=== PATIENT | female | born 1990 | race Hispanic/Latino ===

== ENCOUNTER 2017-01-17 14:44 | Emergency (ER) | payer SELFPAY ==
[~2017-01-17] VITALS: Ht 170.2 cm; Wt 79.5 kg
[~2017-01-17 14:44] MED LIST: AMOXICILLIN500 MG OR; AMOXICILLIN500 MG PO; BACTRIM DS1 TAB PO; CIPRO500 MG OR; CORTISPORIN OTI10 M2 AD; FIORICET PO; KETOROLAC10 MG OR; LORTAB 1010 MG PO; MACRODANTIN100 MG OR; NAPROSYN500 MG PO; NO HOME MEDS; PERCOCET 5/325M1 TAB PO; PROMETHAZINE25 M1 RE; TESSALON PER100 MG PO; TORADOL PO; ZITHROMAX250 MG PO; ZOFRAN4 MG/TAB PO
[2017-01-17] MEDS ORDERED: CIPROFLOXACN500 MG PO (15:33)
[2017-01-17] MEDS ORDERED: ZOFRAN ODT4 MG PO (15:33)
[2017-01-17 15:49] VITALS: BP 139/78
== END 2017-01-17 15:49 | disposition home or self-care (01) | DRG 392 ==
LOC: ED 14:44
DX: K52.9 Noninfective gastroenteritis and colitis, unspecified (principal)

== ENCOUNTER 2017-05-14 17:53 | Emergency (ER) | payer MEDICAID ==
[~2017-05-14] VITALS: Ht 170.2 cm; Wt 95.0 kg
[~2017-05-14 17:53] MED LIST changes: +CIPROFLOXACN500 MG PO; +ZOFRAN ODT4 MG PO
[2017-05-14 18:31] VITALS: BP 158/95
== END 2017-05-14 18:37 | disposition home or self-care (01) | DRG 781 ==
LOC: ED 17:53
DX: O26.891 Other specified pregnancy related conditions, first trimester (principal); R76.11 Nonspecific reaction to tuberculin skin test without active tuberculosis; Z3A.01 Less than 8 weeks gestation of pregnancy

== ENCOUNTER 2017-05-22 13:33 | Emergency (ER) | payer MEDICAID ==
[~2017-05-22] VITALS: Ht 170.2 cm; Wt 90.0 kg
[2017-05-22 13:33] VITALS: BP 147/96
[2017-05-22 14:39] LABS: HEMATOCRIT 42.1 % (37.0-47.0); IMMATURE GRANULOCYTES 0.5 % (0.0-1.0); MEAN CELL VOLUME 85.9 fL CALC (80.0-100.0); MEAN CORPUSCULAR HGB 30.6 pG CALC (26.0-32.0); MEAN CORPUSCULAR HGB CONC 35.6 g/L CALC (32.0-36.0); NEUT# 9.75 thou/uL (2.00-7.15); RED BLOOD COUNT 4.9 mill/uL (4.20-5.60); RED CELL DISTRI WIDTH 12.3 % (11.5-15.5)
[2017-05-22 14:56] LABS: ALBUMIN 4.6 g/dL (3.2-5.0); ALKALINE PHOSPHATASE 69 u/l (38-126); AMYLASE 46 u/l (30-110); ANION GAP 18 (6-22 (CALC)); BILIRUBIN, TOTAL 3.2 mg/dL (0.0-1.4); BUN 8 mg/dL (7-17); BUN/CREATININE RATIO 13 (12-20 (CALC)); CALCIUM 9.8 mg/dL (8.4-10.2); CARBON DIOXIDE 22 mmol/l (22-30); CHLORIDE 105 mmol/l (95-108); CREATININE 0.6 mg/dL (0.5-1.0); GFR > 60 ML/MIN (>=60 (CALC)); GFR FOR AFR.AMER. > 60 ML/MIN (>=60 (CALC)); GLUCOSE 111 mg/dL (65-105); LIPASE 37 u/l (23-300); POTASSIUM 4.2 mmol/l (3.5-5.1); SGOT/AST 32 u/l (14-36); SGPT/ALT 42 u/l (9-52); SODIUM 141 mmol/l (137-146); TOTAL PROTEIN 7.8 g/dL (6.3-8.2)
[2017-05-22] MEDS ORDERED: ZOFRAN ODT4 MG PO (15:33)
== END 2017-05-22 16:00 | disposition home or self-care (01) | DRG 781 ==
LOC: ED 13:33
PROVIDERS: Emergency Medicine
DX: O21.0 Mild hyperemesis gravidarum (principal); Z3A.01 Less than 8 weeks gestation of pregnancy

== ENCOUNTER 2017-06-19 00:14 | Emergency (ER) | payer OTHER ==
[~2017-06-19] VITALS: Ht 170.2 cm; Wt 95.2 kg
[2017-06-19] MEDS ORDERED: AMOXICILLIN500 MG PO (00:29)
[2017-06-19 00:40] VITALS: BP 135/75
== END 2017-06-19 00:40 | disposition home or self-care (01) | DRG 159 ==
LOC: ED 00:14
DX: K08.89 Other specified disorders of teeth and supporting structures (principal); K03.81 Cracked tooth; Z33.1 Pregnant state, incidental

== ENCOUNTER 2017-11-28 09:08 | Emergency (ER) | payer OTHER ==
[~2017-11-28] VITALS: Ht 170.2 cm; Wt 98.6 kg
[2017-11-28] MEDS ORDERED: PRENATA3 PO (09:24)
[2017-11-28] MEDS ORDERED: CLINDAMYCIN300 M1 PO (11:05)
[2017-11-28] MEDS ORDERED: HYDROCO/APAP1 TA9 PO (11:05)
[2017-11-28 12:10] VITALS: BP 136/79
== END 2017-11-28 12:10 | disposition home or self-care (01) | DRG 603 ==
LOC: ED 09:08
PROC: 0H98XZZ Drainage of Buttock Skin, External Approach (ICD-10-PCS; principal; 2017-11-28)
DX: L02.31 Cutaneous abscess of buttock (principal); B95.4 Other streptococcus as the cause of diseases classified elsewhere; Z33.1 Pregnant state, incidental

== ENCOUNTER 2018-10-27 04:48 | Emergency (ER) | payer OTHER ==
[~2018-10-27] VITALS: Ht 170.2 cm; Wt 95.0 kg
[~2018-10-27 04:48] MED LIST changes: +CLINDAMYCIN300 M1 PO; +HYDROCO/APAP1 TA9 PO; +PRENATA3 PO
[2018-10-27 05:26] LABS: HEMATOCRIT 41.1 % (37.0-47.0); IMMATURE GRANULOCYTES 0.6 % (0.0-5.0); MEAN CELL VOLUME 87.1 fL CALC (80.0-100.0); MEAN CORPUSCULAR HGB 29.7 pG CALC (26.0-32.0); MEAN CORPUSCULAR HGB CONC 34.1 g/L CALC (32.0-36.0); RED BLOOD COUNT 4.72 mill/uL (4.20-5.60); RED CELL DISTRI WIDTH 13.2 % (11.5-15.5); URINE BILIRUBIN - DIPSTICK NEGATIVE (NEGATIVE); URINE BLOOD DIPSTICK SMALL (NEGATIVE); URINE COLOR YELLOW; URINE GLUCOSE - DIPSTICK NEGATIVE (NEGATIVE); URINE KETONE NEGATIVE (NEGATIVE); URINE NITRITE - DIPSTICK NEGATIVE (Negative); URINE PROTEIN - DIPSTICK NEGATIVE (NEG-TRACE); URINE SPECIFIC GRAVITY 1.015; URINE UROBILINOGEN - DIPSTICK 0.2 E.U./dL (0.2)
[2018-10-27 05:31] LABS: URINE LEUK ESTERASE SMALL (NEGATIVE)
[2018-10-27 05:34] LABS: URINE BACTERIA FEW hpf; URINE SQUAMOUS EPITHELIAL CELL FEW EPI/hpf (0-FEW); URINE WBC 20-50 WBC/hpf (0-5)
[2018-10-27 05:40] LABS: ALBUMIN 4.5 g/dL (3.2-5.0); ALKALINE PHOSPHATASE 85 u/l (38-126); AMYLASE 32 u/l (30-110); ANION GAP 15 (6-22 (CALC)); BUN 12 mg/dL (7-17); BUN/CREATININE RATIO 18 (12-20 (CALC)); CARBON DIOXIDE 25 mmol/l (22-30); CHLORIDE 104 mmol/l (95-108); CREATININE 0.7 mg/dL (0.5-1.0); GFR > 60 ML/MIN (>=60 (CALC)); GFR FOR AFR.AMER. > 60 ML/MIN (>=60 (CALC)); LIPASE 61 u/l (23-300); POTASSIUM 4.6 mmol/l (3.5-5.1); SGOT/AST 17 u/l (14-36); SODIUM 140 mmol/l (137-146); TOTAL PROTEIN 7.4 g/dL (6.3-8.2)
[2018-10-27] MEDS ORDERED: CIPROFLOXACN500 MG PO (06:42)
[2018-10-27] MEDS ORDERED: NAPROSYN500 MG PO (06:42)
[2018-10-27 07:30] VITALS: BP 133/91
== END 2018-10-27 07:30 | disposition home or self-care (01) ==
LOC: ED 04:48
PROVIDERS: Emergency Medicine
DX: N39.0 Urinary tract infection, site not specified (principal); B96.20 Unspecified Escherichia coli [E. coli] as the cause of diseases classified elsewhere; R10.32 Left lower quadrant pain; K76.0 Fatty (change of) liver, not elsewhere classified; R30.0 Dysuria; R11.0 Nausea; R35.0 Frequency of micturition

== ENCOUNTER 2018-11-03 09:01 | Emergency (ER) | payer OTHER ==
[~2018-11-03] VITALS: Ht 170.2 cm; Wt 100.0 kg
[2018-11-03 09:35] LABS: HEMOGLOBIN 13.4 g/dl (12.0-16.0); IMMATURE GRANULOCYTES 0.6 % (0.0-5.0); MEAN CELL VOLUME 86.6 fL CALC (80.0-100.0); MEAN CORPUSCULAR HGB CONC 33.5 g/L CALC (32.0-36.0); NEUT# 5.24 thou/uL (2.00-7.15); RED BLOOD COUNT 4.62 mill/uL (4.20-5.60); RED CELL DISTRI WIDTH 12.8 % (11.5-15.5)
[2018-11-03 10:15] LABS: ALBUMIN 3.8 g/dL (3.2-5.0); ALKALINE PHOSPHATASE 66 u/l (38-126); ANION GAP 14 (6-22 (CALC)); BILIRUBIN, TOTAL 0.6 mg/dL (0.0-1.4); BUN 6 mg/dL (7-17); BUN/CREATININE RATIO 12 (12-20 (CALC)); CARBON DIOXIDE 24 mmol/l (22-30); CHLORIDE 107 mmol/l (95-108); CREATININE 0.5 mg/dL (0.5-1.0); ETHYL ALCOHOL 0 mg/dl (0-30); GFR > 60 ML/MIN (>=60 (CALC)); GFR FOR AFR.AMER. > 60 ML/MIN (>=60 (CALC)); LIPASE 42 u/l (23-300); POTASSIUM 4.4 mmol/l (3.5-5.1); SGOT/AST 20 u/l (14-36); SODIUM 140 mmol/l (137-146); TOTAL PROTEIN 6.9 g/dL (6.3-8.2)
[2018-11-03 11:18] VITALS: BP 143/96
== END 2018-11-03 11:15 | disposition home or self-care (01) | DRG 563 ==
LOC: ED 09:01
PROVIDERS: Family Medicine
DX: S39.012A Strain of muscle, fascia and tendon of lower back, initial encounter (principal); M54.2 Cervicalgia; V43.53XA Car driver injured in collision with pick-up truck in traffic accident, initial encounter
CPT/HCPCS: Q9967

== ENCOUNTER 2018-12-03 07:50 | Emergency (ER) | payer OTHER ==
[~2018-12-03] VITALS: Ht 170.2 cm; Wt 100.0 kg
[2018-12-03 08:23] LABS: URINE BILIRUBIN - DIPSTICK NEGATIVE (NEGATIVE); URINE BLOOD DIPSTICK MODERATE (NEGATIVE); URINE COLOR YELLOW; URINE GLUCOSE - DIPSTICK NEGATIVE (NEGATIVE); URINE KETONE NEGATIVE (NEGATIVE); URINE LEUK ESTERASE NEGATIVE (NEGATIVE); URINE NITRITE - DIPSTICK NEGATIVE (Negative); URINE PH 6.5 (4.5-8.0); URINE PROTEIN - DIPSTICK NEGATIVE (NEG-TRACE); URINE UROBILINOGEN - DIPSTICK 0.2 E.U./dL (0.2)
[2018-12-03 08:30] LABS: HEMOGLOBIN 14.2 g/dl (12.0-16.0); IMMATURE GRANULOCYTES 0.4 % (0.0-5.0); MEAN CELL VOLUME 85.7 fL CALC (80.0-100.0); MEAN CORPUSCULAR HGB CONC 33.8 g/L CALC (32.0-36.0); NEUT# 7.01 thou/uL (2.00-7.15); RED BLOOD COUNT 4.9 mill/uL (4.20-5.60); RED CELL DISTRI WIDTH 12.8 % (11.5-15.5)
[2018-12-03 08:33] LABS: URINE BACTERIA FEW hpf; URINE RBC 0-2 RBC/hpf (0-5); URINE SQUAMOUS EPITHELIAL CELL FEW EPI/hpf (0-FEW)
[2018-12-03 08:37] LABS: ALBUMIN 4.7 g/dL (3.2-5.0); ALKALINE PHOSPHATASE 88 u/l (38-126); ANION GAP 16 (6-22 (CALC)); BILIRUBIN, TOTAL 0.8 mg/dL (0.0-1.4); BUN 9 mg/dL (7-17); BUN/CREATININE RATIO 16 (12-20 (CALC)); CARBON DIOXIDE 26 mmol/l (22-30); CHLORIDE 103 mmol/l (95-108); CREATININE 0.6 mg/dL (0.5-1.0); GFR > 60 ML/MIN (>=60 (CALC)); GFR FOR AFR.AMER. > 60 ML/MIN (>=60 (CALC)); LIPASE 63 u/l (23-300); POTASSIUM 3.9 mmol/l (3.5-5.1); SGOT/AST 20 u/l (14-36); SODIUM 141 mmol/l (137-146); TOTAL PROTEIN 7.6 g/dL (6.3-8.2)
[2018-12-03] MEDS ORDERED: ONDANSETRON4 MG PO (10:59)
[2018-12-03 11:07] VITALS: BP 124/70
== END 2018-12-03 11:05 | disposition home or self-care (01) ==
LOC: ED 07:50
PROVIDERS: Family Medicine
DX: K52.9 Noninfective gastroenteritis and colitis, unspecified (principal); R11.2 Nausea with vomiting, unspecified; R19.7 Diarrhea, unspecified; R10.84 Generalized abdominal pain

== ENCOUNTER 2019-01-06 00:58 | Emergency (ER) | payer OTHER ==
[~2019-01-06] VITALS: Ht 170.2 cm; Wt 90.9 kg
[~2019-01-06 00:58] MED LIST changes: +ONDANSETRON4 MG PO
[2019-01-06 01:17] LABS: HEMATOCRIT 39.3 % (37.0-47.0); HEMOGLOBIN 13.4 g/dl (12.0-16.0); IMMATURE GRANULOCYTES 0.7 % (0.0-5.0); MEAN CELL VOLUME 85.4 fL CALC (80.0-100.0); MEAN CORPUSCULAR HGB 29.1 pG CALC (26.0-32.0); MEAN CORPUSCULAR HGB CONC 34.1 g/L CALC (32.0-36.0); NEUT# 13.02 thou/uL (2.00-7.15); RED BLOOD COUNT 4.6 mill/uL (4.20-5.60); RED CELL DISTRI WIDTH 13.1 % (11.5-15.5)
[2019-01-06 01:29] LABS: ALBUMIN 4.5 g/dL (3.2-5.0); ALKALINE PHOSPHATASE 74 u/l (38-126); AMYLASE 42 u/l (30-110); ANION GAP 15 (6-22 (CALC)); BUN 14 mg/dL (7-17); BUN/CREATININE RATIO 20 (12-20 (CALC)); CARBON DIOXIDE 23 mmol/l (22-30); CHLORIDE 104 mmol/l (95-108); CREATININE 0.7 mg/dL (0.5-1.0); GFR > 60 ML/MIN (>=60 (CALC)); GFR FOR AFR.AMER. > 60 ML/MIN (>=60 (CALC)); LIPASE 69 u/l (23-300); POTASSIUM 3.6 mmol/l (3.5-5.1); SGOT/AST 17 u/l (14-36); SODIUM 138 mmol/l (137-146); TOTAL PROTEIN 7.3 g/dL (6.3-8.2)
[2019-01-06 01:30] LABS: BILIRUBIN, TOTAL 2.2 mg/dL (0.0-1.4)
[2019-01-06 03:51] LABS: URINE BILIRUBIN - DIPSTICK NEGATIVE (NEGATIVE); URINE BLOOD DIPSTICK NEGATIVE (NEGATIVE); URINE COLOR YELLOW; URINE GLUCOSE - DIPSTICK NEGATIVE (NEGATIVE); URINE KETONE 40 mg/dL (NEGATIVE); URINE LEUK ESTERASE NEGATIVE (NEGATIVE); URINE NITRITE - DIPSTICK NEGATIVE (Negative); URINE PH 5.5 (4.5-8.0); URINE PROTEIN - DIPSTICK NEGATIVE (NEG-TRACE); URINE SPECIFIC GRAVITY >=1.030
[2019-01-06 06:05] VITALS: BP 122/65
== END 2019-01-06 06:05 | disposition short-term general hospital (02) ==
LOC: ED 00:58
PROVIDERS: Emergency Medicine
DX: O26.891 Other specified pregnancy related conditions, first trimester (principal); R10.31 Right lower quadrant pain; Z3A.00 Weeks of gestation of pregnancy not specified; R11.2 Nausea with vomiting, unspecified

== ENCOUNTER 2020-04-16 18:10 | Emergency (ER) | payer OTHER ==
[~2020-04-16] VITALS: Ht 170.2 cm; Wt 85.0 kg
[2020-04-16 19:19] LABS: HCG SERUM/URINE (NEG/POS) POSITIVE (NEGATIVE)
[2020-04-16] MEDS ORDERED: ZOFRAN4 MG/TAB PO ×2 (19:56)
[2020-04-16] MEDS ORDERED: PRE-NATAL PO (19:58)
[2020-04-16 20:07] VITALS: BP 140/88
--- NOTE | 2020-04-18 12:30 | NUR ---
Notified patient of postive Covid results. Advised patient to quarantine until contacted by the [facility] with further instructions. Advised patient to notify OB as soon as possible. Offered to fax results to OB, patient declined. Patient denies difficulty brething at this time. Patient c/o chills and loss of smell and taste. Advised patient to return to ED with difficulty breathing or other urgent needs. Patient verbalized understanding.
== END 2020-04-16 20:07 | disposition home or self-care (01) ==
LOC: ED 18:10
DX: O98.519 Other viral diseases complicating pregnancy, unspecified trimester (principal); U07.1 COVID-19; R43.8 Other disturbances of smell and taste; Z3A.00 Weeks of gestation of pregnancy not specified

== ENCOUNTER 2020-05-18 03:49 | Emergency (ER) | payer OTHER ==
[~2020-05-18] VITALS: Ht 170.2 cm; Wt 96.0 kg
[~2020-05-18 03:49] MED LIST changes: +PRE-NATAL PO
[2020-05-18 05:07] LABS: URINE BILIRUBIN - DIPSTICK NEGATIVE (NEGATIVE); URINE BLOOD DIPSTICK LARGE (NEGATIVE); URINE COLOR YELLOW; URINE GLUCOSE - DIPSTICK NEGATIVE (NEGATIVE); URINE KETONE NEGATIVE (NEGATIVE); URINE NITRITE - DIPSTICK NEGATIVE (Negative); URINE PH 7.5 (4.5-8.0); URINE PROTEIN - DIPSTICK 30 mg/dL (NEG-TRACE); URINE SPECIFIC GRAVITY 1.015
[2020-05-18 05:11] LABS: HEMATOCRIT 34.7 % (37.0-47.0); HEMOGLOBIN 11.8 g/dl (12.0-16.0); IMMATURE GRANULOCYTES 0.5 % (0.0-5.0); MEAN CELL VOLUME 87.2 fL CALC (80.0-100.0); MEAN CORPUSCULAR HGB 29.6 pG CALC (26.0-32.0); NEUT# 10.11 thou/uL (2.00-7.15); RED BLOOD COUNT 3.98 mill/uL (4.20-5.60); RED CELL DISTRI WIDTH 13.2 % (11.5-15.5)
[2020-05-18 05:13] LABS: URINE LEUK ESTERASE MODERATE (NEGATIVE)
[2020-05-18 05:26] LABS: ALBUMIN 3.6 g/dL (3.2-5.0); ALKALINE PHOSPHATASE 76 u/l (38-126); AMYLASE 50 u/l (30-110); ANION GAP 10 (6-22 (CALC)); BUN 3 mg/dL (7-17); BUN/CREATININE RATIO 6 (12-20 (CALC)); CARBON DIOXIDE 25 mmol/l (22-30); CHLORIDE 104 mmol/l (95-108); CREATININE 0.4 mg/dL (0.5-1.0); GFR > 60 ML/MIN (>=60 (CALC)); GFR FOR AFR.AMER. > 60 ML/MIN (>=60 (CALC)); LIPASE 89 u/l (23-300); POTASSIUM 3.8 mmol/l (3.5-5.1); SGOT/AST 12 u/l (14-36); SODIUM 135 mmol/l (137-146); TOTAL PROTEIN 6.2 g/dL (6.3-8.2)
[2020-05-18 05:29] LABS: URINE BACTERIA MANY hpf; URINE MUCUS FEW hpf (NONE-FEW); URINE SQUAMOUS EPITHELIAL CELL FEW EPI/hpf (0-FEW); URINE WBC 20-50 WBC/hpf (0-5)
[2020-05-18 05:30] LABS: BILIRUBIN, TOTAL 0.4 mg/dL (0.0-1.4)
[2020-05-18 06:08] LABS: BETA-HCG, QUANT(RESULT NUMBER) 48193 mIU/mL
[2020-05-18] MEDS ORDERED: KEFLEX500 M1 PO (08:28)
[2020-05-18 08:31] VITALS: BP 144/80
== END 2020-05-18 08:45 | disposition home or self-care (01) ==
LOC: ED 03:49
PROVIDERS: Family Medicine
DX: O23.40 Unspecified infection of urinary tract in pregnancy, unspecified trimester (principal); B95.7 Other staphylococcus as the cause of diseases classified elsewhere; O99.89 Other specified diseases and conditions complicating pregnancy, childbirth and the puerperium; N28.89 Other specified disorders of kidney and ureter; Z3A.00 Weeks of gestation of pregnancy not specified; Z86.19 Personal history of other infectious and parasitic diseases

== ENCOUNTER 2020-05-21 09:35 | Emergency (ER) | payer OTHER ==
[~2020-05-21] VITALS: Ht 170.2 cm; Wt 96.8 kg
[~2020-05-21 09:35] MED LIST changes: +KEFLEX500 M1 PO
[2020-05-21 15:18] VITALS: BP 134/78
== END 2020-05-21 15:18 | disposition home or self-care (01) ==
LOC: ED 09:35
DX: Z03.79 Encounter for other suspected maternal and fetal conditions ruled out (principal); Z86.19 Personal history of other infectious and parasitic diseases

== ENCOUNTER 2021-04-18 09:38 | Emergency (ER) | payer OTHER ==
[~2021-04-18] VITALS: Ht 170.2 cm; Wt 100.0 kg
[2021-04-18] MEDS ORDERED: AMOX/K CLAV875 M1 PO (09:58)
[2021-04-18] MEDS ORDERED: CIPRODEX1 ML AS (09:58)
[2021-04-18] MEDS ORDERED: HYDROCO/APAP1 TA9 PO (09:58)
[2021-04-18] MEDS ORDERED: NO HOME MEDS (10:10)
[2021-04-18 10:20] VITALS: BP 140/89
== END 2021-04-18 10:20 | disposition home or self-care (01) ==
LOC: ED 09:38
DX: H66.92 Otitis media, unspecified, left ear (principal); H60.92 Unspecified otitis externa, left ear

== ENCOUNTER 2021-05-06 11:25 | Emergency (ER) | payer OTHER ==
[~2021-05-06] VITALS: Ht 170.2 cm; Wt 105.0 kg
[~2021-05-06 11:25] MED LIST changes: +AMOX/K CLAV875 M1 PO; +CIPRODEX1 ML AS
[2021-05-06 12:25] LABS: URINE BLOOD DIPSTICK MODERATE (NEGATIVE); URINE GLUCOSE - DIPSTICK NEGATIVE (NEGATIVE); URINE KETONE 15 mg/dL (NEGATIVE); URINE PROTEIN - DIPSTICK 100 mg/dL (NEG-TRACE); URINE SPECIFIC GRAVITY 1.015
[2021-05-06 12:30] LABS: URINE BILIRUBIN - DIPSTICK SMALL (NEGATIVE)
[2021-05-06 12:31] LABS: URINE BACTERIA MODERATE hpf; URINE COLOR DK. YELLOW; URINE EPITHELIAL CELLS FEW EPI/hpf (0-FEW); URINE LEUK ESTERASE LARGE (NEGATIVE); URINE NITRITE - DIPSTICK POSITIVE (Negative); URINE WBC 20-50 WBC/hpf (0-5)
[2021-05-06] MEDS ORDERED: PYRIDIUM200 MG PO (12:43)
[2021-05-06] MEDS ORDERED: KEFLEX500 MG PO (12:43)
[2021-05-06 12:55] VITALS: BP 155/79
== END 2021-05-06 12:55 | disposition home or self-care (01) ==
LOC: ED 11:25
PROVIDERS: Emergency Medicine
DX: N39.0 Urinary tract infection, site not specified (principal); B96.20 Unspecified Escherichia coli [E. coli] as the cause of diseases classified elsewhere; Z20.822 Contact with and (suspected) exposure to COVID-19

== ENCOUNTER 2021-09-16 09:49 | Emergency (ER) | payer OTHER ==
[~2021-09-16] VITALS: Ht 170.2 cm; Wt 100.0 kg
[~2021-09-16 09:49] MED LIST changes: +KEFLEX500 MG PO; +PYRIDIUM200 MG PO
[2021-09-16 13:13] LABS: HEMATOCRIT 43.6 % (37.0-47.0); HEMOGLOBIN 14.6 g/dl (12.0-16.0); IMMATURE GRANULOCYTES 0.1 % (0.0-5.0); MEAN CELL VOLUME 87.4 fL CALC (80.0-100.0); MEAN CORPUSCULAR HGB 29.3 pG CALC (26.0-32.0); MEAN CORPUSCULAR HGB CONC 33.5 g/dL CAL (32.0-36.0); NEUT# 5.12 thou/uL (2.00-7.15); RED BLOOD COUNT 4.99 mill/uL (4.20-5.60); RED CELL DISTRI WIDTH 12.7 % (11.5-15.5)
[2021-09-16 13:13] LABS: URINE BILIRUBIN - DIPSTICK NEGATIVE (NEGATIVE); URINE BLOOD DIPSTICK LARGE (NEGATIVE); URINE GLUCOSE - DIPSTICK 100 mg/dL (NEGATIVE); URINE KETONE TRACE mg/dL (NEGATIVE); URINE PROTEIN - DIPSTICK 100 mg/dL (NEG-TRACE); URINE SPECIFIC GRAVITY 1.015
[2021-09-16 13:15] LABS: URINE COLOR BLOODY; URINE LEUK ESTERASE SMALL (NEGATIVE); URINE NITRITE - DIPSTICK POSITIVE (Negative)
[2021-09-16 13:17] LABS: URINE RBC >100 RBC/hpf (0-5); URINE SQUAMOUS EPITHELIAL CELL FEW EPI/hpf (0-FEW); URINE WBC 0-2 WBC/hpf (0-5)
[2021-09-16 13:27] LABS: ALBUMIN 4.3 g/dL (3.2-5.0); ALKALINE PHOSPHATASE 81 u/l (38-126); ANION GAP 11 (6-22 (CALC)); BUN 7 mg/dL (7-17); BUN/CREATININE RATIO 12 (12-20 (CALC)); CARBON DIOXIDE 28 mmol/l (22-30); CHLORIDE 104 mmol/l (95-108); CREATININE 0.6 mg/dL (0.5-1.0); GFR > 60 ML/MIN (>=60 (CALC)); GFR FOR AFR.AMER. > 60 ML/MIN (>=60 (CALC)); POTASSIUM 4.3 mmol/l (3.5-5.1); SODIUM 138 mmol/l (137-146)
[2021-09-16 13:28] LABS: BILIRUBIN, TOTAL 1.7 mg/dL (0.0-1.4); SGOT/AST 25 u/l (14-36); TOTAL PROTEIN 7.6 g/dL (6.3-8.2)
[2021-09-16] MEDS ORDERED: PRENATA3 PO (18:34)
[2021-09-16 18:50] VITALS: BP 153/98
== END 2021-09-16 18:55 | disposition home or self-care (01) ==
LOC: ED 09:49
PROVIDERS: Emergency Medicine
DX: O20.0 Threatened abortion (principal); Z3A.01 Less than 8 weeks gestation of pregnancy

== ENCOUNTER 2023-04-06 09:15 | Emergency (ER) | payer MEDICAID ==
[2023-04-06] VITALS (12 sets, daily range): BP systolic 137–172; BP diastolic 72–97
[~2023-04-06] VITALS: Ht 170.2 cm; Wt 99.7 kg
== END 2023-04-06 13:31 | disposition home or self-care (01) ==
LOC: ED 09:15
DX: S00.512A Abrasion of oral cavity, initial encounter (principal); X58.XXXA Exposure to other specified factors, initial encounter

== ENCOUNTER 2023-06-30 18:10 | Emergency (ER) | payer MEDICAID ==
[~2023-06-30] VITALS: Ht 170.2 cm; Wt 90.0 kg
[2023-06-30 20:17] LABS: BASO% 0.6 % (0-3); EOS% 2.1 % (0-8); HEMATOCRIT 43.3 % (37.0-47.0); HEMOGLOBIN 14.5 g/dl (12.0-16.0); IMMATURE GRANULOCYTES 0.3 % (0.0-5.0); LYMPH% 16.2 % (15-41); MEAN CELL VOLUME 87.3 fL CALC (80.0-100.0); MEAN CORPUSCULAR HGB 29.2 pG CALC (26.0-32.0); MEAN CORPUSCULAR HGB CONC 33.5 g/dL CAL (32.0-36.0); MONO% 6.9 % (2-13); NEUT# 4.62 thou/uL (2.00-7.15); NEUT% 73.9 % (42-76); RED BLOOD COUNT 4.96 mill/uL (4.20-5.60); RED CELL DISTRI WIDTH 12.5 % (11.5-15.5)
[2023-06-30 20:31] LABS: ALBUMIN 4.8 g/dL (3.2-5.0); ALKALINE PHOSPHATASE 82 u/l (38-126); BILIRUBIN, TOTAL 1.2 mg/dL (0.02-1.3); BUN 12 mg/dL (7-17); BUN/CREATININE RATIO 16 (12-20 (CALC)); CARBON DIOXIDE 24 mmol/l (22-30); CHLORIDE 102 mmol/l (95-108); CREATININE 0.8 mg/dL (0.5-1.0); GFR FOR AFR.AMER. > 60 ML/MIN (>=60 (CALC)); GFR OTHER RACES > 60 ML/MIN (>=60 (CALC)); SODIUM 140 mmol/l (137-146); TOTAL PROTEIN 8.1 g/dL (6.3-8.2)
[2023-06-30 20:44] LABS: ANION GAP 17 (6-22 (CALC)); POTASSIUM 3.3 mmol/l (3.5-5.1); SGOT/AST 129 u/l (14-36)
[2023-06-30] MEDS ORDERED: PULMICORT90 MCG/ACT PO (23:43)
[2023-06-30] MEDS ORDERED: PREDNISONE20 MG PO (23:43)
[2023-06-30] MEDS ORDERED: VENTOLIN HFA108 MCG PO (23:43)
[2023-07-01 00:07] VITALS: BP 138/79
== END 2023-07-01 00:13 | disposition home or self-care (01) ==
LOC: ED 18:10
PROVIDERS: Emergency Medicine
DX: B34.9 Viral infection, unspecified (principal); I10 Essential (primary) hypertension; Z20.822 Contact with and (suspected) exposure to COVID-19